=== PATIENT | male | born 1955 | race Caucasian/White ===

== ENCOUNTER → 2019-03-01 | Outpatient (CLI) | payer MEDICARE, BC | LOC: COL.RAD 10:11 | DX: Z13.6 Encounter for screening for cardiovascular disorders (principal) ==

== ENCOUNTER → 2019-05-01 | Outpatient (CLI) | payer MEDICARE, BC | LOC: COL.RAD 13:50 | DX: K52.9 Noninfective gastroenteritis and colitis, unspecified (principal); K92.1 Melena | CPT/HCPCS: Q9967 ==

== ENCOUNTER 2019-06-07 06:29 | Day surgery (SDC) | payer MEDICARE, BC ==
[~2019-06-07] VITALS: Ht 177.8 cm; Wt 101.5 kg
[2019-06-07 06:56] VITALS: BP 1422/79; PULSE 58; TEMP 98
[2019-06-07] MEDS ORDERED: ATROVENT NASAL15 ML NS (07:04)
[2019-06-07] MEDS ORDERED: TRIBENZOR 10 MG1 TA1 PO (07:05)
[2019-06-07] MEDS ORDERED: TRANDATE300 MG PO (07:06)
[2019-06-07] MEDS ORDERED: CATAPRES 0.1MG0.1 MG PO (07:07)
[2019-06-07] MEDS ORDERED: PRINIVIL40 MG PO (07:08)
[2019-06-07] MEDS ORDERED: K-DUR20 MEQ PO ×2 (07:09)
[2019-06-07] MEDS ORDERED: ALEVE 220MG220 MG PO (07:10)
[2019-06-07] MEDS ORDERED: ALDACTONE 25MG25 M1 PO (07:10)
[2019-06-07 08:45] VITALS: BP 93/61; PULSE 48; TEMP 97.6
--- NOTE | 2019-06-07 08:45 | NUR ---
Pt arrived back to room post procedure and ambulated easily to chair with touch assist from Endo RN. Pt is awake, alert, and oriented. Pt does state that he has some pain in left elbow and some gas pain that have been progressively improving. VSS and patient bradycardic, however, Endo RN states that his baseline was sinus lulu. Muffin and coffee alexandra to pt per request and at bedside. Pt denies nausea. Call light within reach.
[2019-06-07 09:00] VITALS: BP 97/59; PULSE 50
--- NOTE | 2019-06-07 09:00 | NUR ---
Pt sitting comfortably in chair and says that his elbow and gas pain feel much better. He successfully ate muffin and drank coffee without n/v. Pt states that he feels well enough to go home. He is alert/oriented and VSS.
[2019-06-07 09:15] VITALS: BP 101/65; PULSE 45
--- NOTE | 2019-06-07 09:15 | NUR ---
Pt is ready to go home and meets criteria for discharge. Reviewed discharge information and education packet with pt and ; they had no further questions and expressed understanding. VSS upon discharge.
== END 2019-06-07 09:30 | disposition home or self-care (01) ==
LOC: SDCO 06:29
DX: Z12.11 Encounter for screening for malignant neoplasm of colon (principal); D12.3 Benign neoplasm of transverse colon; D12.4 Benign neoplasm of descending colon; K57.30 Diverticulosis of large intestine without perforation or abscess without bleeding; I10 Essential (primary) hypertension; M19.90 Unspecified osteoarthritis, unspecified site; E66.9 Obesity, unspecified
CPT/HCPCS: J2704; J7120

== ENCOUNTER → 2021-10-06 | Outpatient (CLI) | payer MEDICARE, BC ==
[~2021-10-06] MED LIST: ALDACTONE 25MG25 M1 PO; ALEVE 220MG220 MG PO; ATROVENT NASAL15 ML NS; CATAPRES 0.1MG0.1 MG PO; K-DUR20 MEQ PO; PRINIVIL40 MG PO; TRANDATE300 MG PO; TRIBENZOR 10 MG1 TA1 PO
== END ==
LOC: MHCPAIN 09:11
DX: M47.817 Spondylosis without myelopathy or radiculopathy, lumbosacral region (principal); M53.3 Sacrococcygeal disorders, not elsewhere classified; M54.16 Radiculopathy, lumbar region
CPT/HCPCS: G0463

== ENCOUNTER 2021-10-19 13:15 | Outpatient (RCR) | payer MEDICARE, BC | END 2021-10-22 | disposition home or self-care (01) | LOC: WSPT | DX: M54.16 Radiculopathy, lumbar region (principal) ==

== ENCOUNTER 2021-11-19 08:30 | Outpatient (RCR) | payer MEDICARE, BC | END 2021-11-21 | disposition home or self-care (01) | LOC: PT.GENESIS | DX: M54.16 Radiculopathy, lumbar region (principal) ==

== ENCOUNTER 2021-12-01 09:15 | Outpatient (RCR) | payer MEDICARE, BC | END 2021-12-02 08:05 | disposition home or self-care (01) | LOC: PT.GENESIS 09:15 | DX: M54.16 Radiculopathy, lumbar region (principal) ==